=== PATIENT | female | born 1980 | race African-American/Black ===

== ENCOUNTER 2019-01-21 11:27 | Emergency (ER) | payer OTHER, MEDICAID ==
[~2019-01-21] VITALS: Ht 165.1 cm; Wt 102.0 kg
[2019-01-21 12:29] LABS: CLARITY URINE CLOUDY (CLEAR); COLOR URINE YELLOW (YELLOW); KETONES URINE NEGATIVE (NEGATIVE); LEUKOCYTE ESTERASE URINE TRACE (NEGATIVE); NITRITE URINE NEGATIVE (NEGATIVE); OCCULT BLOOD URINE TRACE (NEGATIVE); PH URINE 7.5 (4.5-8.0); PROTEIN URINE NEGATIVE (NEGATIVE); UROBILINOGEN URINE 0.2 E.U./dL (0.2-1.0)
[2019-01-21] MEDS ORDERED: IBUPROFEN 600MG TABLET PO ONE (12:30)
[2019-01-21 12:39] LABS: BASOPHILS % 1.2 % (0.0-2.0); EOSINOPHILS % 2.6 % (0.0-5.0); HEMATOCRIT. 34.8 % (36.0-48.0); HEMOGLOBIN. 11.4 g/dL (12.0-16.0); LYMPHOCYTES % 32.8 % (20.0-50.0); MEAN CORPUSCULAR HEMOGLOBIN 26.5 pg (28.0-32.0); MEAN CORPUSCULAR VOLUME 80.7 fL (81.0-99.0); MEAN PLATELET VOLUME 6.8 fl (7.4-10.4); MONOCYTES % 4.6 % (2.0-8.0); NEUTROPHILS % 58.8 % (40.0-76.0); PLATELET 386 x1000/uL (130-400); RED BLOOD CELL COUNT 4.31 mill/uL (4.2-5.4); RED CELL DISTRIBUTION WIDTH 16.4 % (11.6-14.6)
[2019-01-21 12:55] LABS: CHLORIDE 106 mEq/L (98-107)
[2019-01-21 17:24] VITALS: BP 116/79
== END 2019-01-21 17:34 | disposition home or self-care (01) ==
LOC: ER 12:33
DX: I10 Essential (primary) hypertension (principal); R55 Syncope and collapse; Z98.890 Other specified postprocedural states
CPT/HCPCS: 36415; 81025; 93005; 99284

== ENCOUNTER 2019-03-26 13:47 | Emergency (ER) | payer OTHER, MEDICAID ==
[~2019-03-26] VITALS: Ht 165.1 cm; Wt 100.0 kg
[2019-03-26 17:32] VITALS: BP 139/97
== END 2019-03-26 17:38 | disposition home or self-care (01) ==
LOC: ER 13:47
DX: Z11.59 Encounter for screening for other viral diseases (principal); E11.9 Type 2 diabetes mellitus without complications; I10 Essential (primary) hypertension; Z98.890 Other specified postprocedural states
CPT/HCPCS: 99283